=== PATIENT | female | born 1970 | race Two or more races ===

== ENCOUNTER 2022-09-28 08:47 | Outpatient (CLI) | payer OTHER | END 2022-09-28 10:37 | disposition home or self-care (01) | LOC: LAB 08:47 | PROVIDERS: ATTEND Surgery | DX: Z01.818 Encounter for other preprocedural examination (principal); K43.2 Incisional hernia without obstruction or gangrene ==

== ENCOUNTER 2022-10-09 05:30 | Day surgery (SDC) | payer OTHER ==
[~2022-10-09] VITALS: Ht 167.6 cm; Wt 74.8 kg
[~2022-10-09 05:30] MED LIST: ESTRA
[2022-10-09] MEDS ORDERED: NEURONTIN300 MG PO (10:51)
[2022-10-09] MEDS ORDERED: PERCOCET 5-3251 EACH PO (10:51)
[2022-10-09] MEDS ORDERED: POLY119PG PO (10:51)
== END 2022-10-09 12:40 | disposition home or self-care (01) ==
LOC: CIR.AMB 05:30
PROVIDERS: ATTEND Surgery
DX: K43.2 Incisional hernia without obstruction or gangrene (principal); Z20.822 Contact with and (suspected) exposure to COVID-19
CPT/HCPCS: 49594; C1781